=== PATIENT | male | born 1980 | race American Indian/Alaskan Native ===

== ENCOUNTER 2017-03-28 10:51 | Emergency (ER) | payer SELFPAY ==
--- NOTE | 2017-03-28 11:07 | Emergency Department Report ---
Stated Complaint: SKIN IRRITATION X 3 DAYS Time Seen by Provider: 03/28/17 11:05 - HPI History of Present Illness: PT states that he has been breaking out x 3 days. PT states he has never had this problem before. PT has not taken anything for this. - ROS Review of Systems: + itching + rash - Exam Physical Exam: PT is alert and appropriate rash noted to forehead MSE screening note: Focused history and physical exam performed. Due to findings the following was ordered: ED Disposition for MSE Condition: Stable
[2017-03-28 12:22] VITALS: BP 117/77
[2017-03-28] MEDS ORDERED: BENADRYL IM ONE (13:28)
[2017-03-28] MEDS ORDERED: DECADRON IM ONE (13:28)
--- NOTE | 2017-03-28 13:34 | Emergency Department Report ---
ED Rash HPI - HPI Chief Complaint: Skin Rash Stated Complaint: SKIN IRRITATION X 3 DAYS Time Seen by Provider: 03/28/17 11:05 Duration: 3 Days Location: Chest, Back, Abdomen Suspected Cause: Unknown Rash Symptoms: Yes Itching Severity: moderate Other History: Patient is a 36 y/o male who presents due to rash x 3 days. Patient denie sany fever, chills, insect bites. ED Review of Systems ROS: Stated complaint: SKIN IRRITATION X 3 DAYS Other details as noted in HPI Comment: All other systems reviewed and negative Constitutional: no symptoms reported. denies: chills, diaphoresis, fever, malaise, weakness ENT: denies: throat pain Respiratory: no symptoms reported. denies: cough, orthopnea, shortness of breath, SOB with exertion, SOB at rest, stridor, wheezing Cardiovascular: denies: chest pain Gastrointestinal: denies: abdominal pain, nausea, vomiting Skin: rash ED Past Medical Hx - Past Medical History Previous Medical History?: No - Surgical History Past Surgical History?: No - Social History Smoking Status: Current Every Day Smoker Substance Use Type: Alcohol, Marijuana - Medications Home Medications: Home Medications Medication Instructions Recorded Confirmed Last Taken Type Clotrimazole 1% [Lotrimin] 1 applic TP BID #1 tube 03/28/17 Unknown Rx Permethrin 5% [Acticin 5% CREAM] 1 applicatio TP ONCE #1 tube 03/28/17 Unknown Rx diphenhydrAMINE [Benadryl CAP] 25 mg PO Q6HR PRN #20 capsule 03/28/17 Unknown Rx Rash Exam - Exam General: Vital signs noted. No distress. Alert and acting appropriately. HEENT: No Periorbital Edema, No Conjuctival Injection, No Chemosis, No Perioral Edema, No Tongue Edema, No Uvular Edema, No Compromised Airway, No Drooling Skin: Yes Other (patient has papular rash on torso, neck and face. Patient had a 3 x 3 cm dry scaly rash with raised borders on th eleft upper posterior leg. ) ED Course Vital Signs 03/28/17 11:06 Temperature 98.2 F Pulse Rate 72 Respiratory 16 Rate Blood Pressure 117/77 O2 Sat by Pulse 97 Oximetry ED Medical Decision Making - Medical Decision Making patient was in NAD, patient was giveb decadron and benadril IM in the ER. PATIENT WAS DISCHARGED WITH A PRESCRIPTION FOR LOTRIMIN, BENADRYL AND PERMETRHIN. Patient was given information to follow up with a esthetician spa. patient was given lotrimin for the dry scaly rash on the posterior left upper leg. - Differential Diagnosis scabies, contact dermatitis, insect bite, tinea corporis Critical care attestation.: If time is entered above; I have spent that time in minutes in the direct care of this critically ill patient, excluding procedure time. ED Disposition Clinical Impression: Scabies, Tinea corporis Disposition: DC-01 TO HOME OR SELFCARE Is pt being admited?: No Does the pt Need Aspirin: No Condition: Good Instructions: Tinea Corporis (ED), Scabies (ED) Additional Instructions: apply lotrimin cream as prescribed to the left leg lesion, apply permethrin cream from the neck down prior to bedtime and rinse off in the morning. Kane benadryl 25 mg every 6 hours as needed for itching. Do not rive or use heavy machinery while taking benadryl. Prescriptions: Clotrimazole 1% [Lotrimin] 1 applic TP BID #1 tube diphenhydrAMINE [Benadryl CAP] 25 mg PO Q6HR PRN #20 capsule PRN Reason: Itching Permethrin 5% [Acticin 5% CREAM] 1 applicatio TP ONCE #1 tube Referrals: NATTY JENNINGS MD [Staff Physician] - 3-5 Days Forms: Work/School Release Form(ED) Time of Disposition: 13:34
== END 2017-03-28 13:56 | disposition home or self-care (01) ==
LOC: EDSEX → ED 10:51
DX: B86 Scabies (principal); B35.4 Tinea corporis; F17.210 Nicotine dependence, cigarettes, uncomplicated; F12.10 Cannabis abuse, uncomplicated
CPT/HCPCS: 96372; 99282; J1100; J1200

== ENCOUNTER 2021-02-01 21:35 | Emergency (ER) | payer OTHER ==
[2021-02-02 01:45] VITALS: BP 131/83
--- NOTE | 2021-02-02 02:16 | Emergency Department Report ---
ED Male HPI - General Chief complaint: Pain General Stated complaint: ISSUE WITH PENIS/BACK PAIN Time Seen by Provider: 02/02/21 01:53 Source: patient, family Mode of arrival: Ambulatory Limitations: No Limitations - History of Present Illness Initial comments: 40-year-old F [place] male with asthma department complaining of having pain to the back of his testicle region which occurred after ejaculating while his girlfriend was at the time. States that he was masturbating due to her not being able instances has been having some whitish discharge and pain which is continued to linger since the onset. He has no significant sweats of sexual transmitted disease states he only has sex with her does not feel that she is being unfavorable is unsure whether his cough is coming from. States that he is having a growing discomfort between the back of the testicle and the pain is reason but no known knowledge of any prostate issues, no medication changes, and no history of a spinal cord injury or diabetes. MD Complaint: penile discharge, dysuria, other -: Gradual Location: penis Severity: mild Quality: aching, dull Consistency: constant Improves with: none Worsens with: palpation, sexual intercourse discharge (Whitish color), other (Change in stream character. Currently is has a spraying types during versus a rope type stream) - Related Data Previous Rx's Medication Instructions Recorded Last Taken Type Clotrimazole 1% [Lotrimin] 1 applic TP BID #1 tube 03/28/17 Unknown Rx Permethrin 5% [Acticin 5% CREAM] 1 applicatio TP ONCE #1 tube 03/28/17 Unknown Rx diphenhydrAMINE [Benadryl CAP] 25 mg PO Q6HR PRN #20 capsule 03/28/17 Unknown Rx Azithromycin [Zithromax TAB] 1,000 mg PO ONCE #2 tablet 02/02/21 Unknown Rx DOXYCYCLINE Hyclate [Vibramycin 100 mg PO BID #20 capsule 02/02/21 Unknown Rx CAP] metroNIDAZOLE [Flagyl] 2,000 mg PO ONCE #4 tablet 02/02/21 Unknown Rx Allergies Allergy/AdvReac Type Severity Reaction Status Date / Time No Known Allergies Allergy Unverified 03/28/17 11:05 ED Review of Systems ROS: Stated complaint: ISSUE WITH PENIS/BACK PAIN Other details as noted in HPI Comment: All other systems reviewed and negative ED Past Medical Hx - Past Medical History Previous Medical History?: No - Surgical History Past Surgical History?: Yes Additional Surgical History: Hernia x2 - Social History Smoking Status: Current Every Day Smoker Substance Use Type: Alcohol, Marijuana - Medications Home Medications: Home Medications Medication Instructions Recorded Confirmed Last Taken Type Clotrimazole 1% [Lotrimin] 1 applic TP BID #1 tube 03/28/17 Unknown Rx Permethrin 5% [Acticin 5% CREAM] 1 applicatio TP ONCE #1 tube 03/28/17 Unknown Rx diphenhydrAMINE [Benadryl CAP] 25 mg PO Q6HR PRN #20 capsule 03/28/17 Unknown Rx Azithromycin [Zithromax TAB] 1,000 mg PO ONCE #2 tablet 02/02/21 Unknown Rx DOXYCYCLINE Hyclate [Vibramycin 100 mg PO BID #20 capsule 02/02/21 Unknown Rx CAP] metroNIDAZOLE [Flagyl] 2,000 mg PO ONCE #4 tablet 02/02/21 Unknown Rx ED Physical Exam - General Limitations: No Limitations General appearance: alert, in no apparent distress - Head Head exam: Present: atraumatic, normocephalic - Eye Eye exam: Present: normal appearance, PERRL, EOMI - ENT ENT exam: Present: mucous membranes moist - Neck Neck exam: Present: normal inspection - Respiratory Respiratory exam: Present: normal lung sounds bilaterally. Absent: respiratory distress - Cardiovascular Cardiovascular Exam: Present: regular rate, normal rhythm. Absent: systolic murmur, diastolic murmur, rubs, gallop - GI/Abdominal GI/Abdominal exam: Present: soft, tenderness (Suprapubic tenderness), normal bowel sounds - Rectal Rectal exam: Present: deferred - exam: Present: testicular tenderness (Posterior groin towards the perineal region), urethral discharge - Extremities Exam Extremities exam: Present: normal inspection - Back Exam Back exam: Present: normal inspection. Absent: CVA tenderness (R), CVA tenderness (L) - Neurological Exam Neurological exam: Present: alert, oriented X3, CN II-XII intact, normal gait - Psychiatric Psychiatric exam: Present: normal affect, normal mood - Skin Skin exam: Present: warm, dry, intact, normal color. Absent: rash ED Course Vital Signs 02/02/21 01:42 Temperature 98.5 F Pulse Rate 83 Respiratory 18 Rate Blood Pressure 131/83 [Left] O2 Sat by Pulse 99 Oximetry ED Medical Decision Making - Lab Data Lab Results 02/02/21 Range/Units 02:26 Urine Color Yellow (Yellow) Urine Turbidity Slightly-cloudy (Clear) Urine pH 6.0 (5.0-7.0) Ur Specific [place] 1.030 (1.003-1.030) Urine Protein 30 mg/dl (Negative) mg/dL Urine Glucose (UA) Neg (Negative) mg/dL Urine Ketones Neg (Negative) mg/dL Urine Blood Mod (Negative) Urine Nitrite Neg (Negative) Urine Bilirubin Neg (Negative) Urine Urobilinogen < 2.0 (<2.0) mg/dL Ur Leukocyte Esterase Lg (Negative) Urine WBC (Auto) 162.0 H (0.0-6.0) /HPF Urine RBC (Auto) 46.0 (0.0-6.0) /HPF U Epithel Cells (Auto) 2.0 (0-13.0) /HPF Urine Mucus Few /HPF - Radiology Data [facility] [address] [place] [address] Ultrasound Report Signed Patient: FAUSTO ROSAS JR MR#: [id number] : 1980 Acct:[id number] Age/Sex: 40 / M ADM Date: 02/01/21 Loc: ED Attending Dr: Ordering Physician: CARLOS MALIN Date of Service: 02/02/21 Procedure(s): US testicular doppler comp Accession Number(s): [id number] cc: CARLOS MALIN ULTRASOUND SCROTUM INDICATION: pain to posterior testicular area. COMPARISON None available. FINDINGS -- RIGHT TESTIS: Size: 4.0 x 1.7 x 2.9 cm. Echotexture: Heterogeneous Color Doppler Flow: Normal. Lesions: None. EPIDIDYMIS: Size: Normal. Echotexture: Normal. Color Doppler Flow: Normal. Lesions: None Hydrocele: None. Varicocele: None. Additional Findings: None. FINDINGS -- LEFT TESTIS: Size: 3.1 x 2.0 x 3.9 cm. Echotexture: Normal. Color Doppler Flow: Normal. Lesions: None. EPIDIDYMIS: Size: Normal. Echotexture: Normal. Color Doppler Flow: Normal. Lesions: None Hydrocele: Moderate Varicocele: None. Additional Findings: None. IMPRESSION: 1. Moderate left hydrocele 2. Heterogeneous right testicle without torsion or orchitis Signer Name: Marty Joshi MD Signed: 02/02/2021 4:00 AM Workstation Name: [id number] Transcribed By: TL Dictated By: Marty Joshi MD Electronically Authenticated By: Marty Joshi MD Signed Date/Time: 02/02/21399 DD/ 6 TD/TT: - Medical Decision Making 40-year-old -[place] male presents emergency department complaining of whitish discharge and painful ejaculation posterior testicle perineal pain which appears to be secondary to anti-inflammatory / infectious cause. Differential diagnosis are various including prostatitis, sexual transmitted disease, prostate cancer, BPH, diabetes, UTI, ligamentous/musculoskeletal pain/trauma, seminal vesicle complication, even mercury toxicity. Diagnostics ultrasound was [as stated above] Plan will follow up with primary care provider to obtain a PSA in conjunction with reevaluation of his urinalysis in the meantime start him on antibiotics anti-inflammatories and have follow-up with a urologist for reevaluation. Critical care attestation.: If time is entered above; I have spent that time in minutes in the direct care of this critically ill patient, excluding procedure time. ED Disposition Clinical Impression: UTI (urinary tract infection), Deep groin pain Disposition: 01 HOME / SELF CARE / HOMELESS Is pt being admited?: No Does the pt Need Aspirin: No Condition: Stable Instructions: Urinalysis Test, Urinary Tract Infection, Adult, Chlamydia, Male, Safe Sex, Gonorrhea, Prostatitis Referrals: [facility] [Provider Group] - 3-5 Days
--- NOTE | 2021-02-02 04:04 | Ultrasound Report ---
ULTRASOUND SCROTUM INDICATION: pain to posterior testicular area. COMPARISON None available. FINDINGS -- RIGHT TESTIS: Size: 4.0 x 1.7 x 2.9 cm. Echotexture: Heterogeneous Color Doppler Flow: Normal. Lesions: None. EPIDIDYMIS: Size: Normal. Echotexture: Normal. Color Doppler Flow: Normal. Lesions: None Hydrocele: None. Varicocele: None. Additional Findings: None. FINDINGS -- LEFT TESTIS: Size: 3.1 x 2.0 x 3.9 cm. Echotexture: Normal. Color Doppler Flow: Normal. Lesions: None. EPIDIDYMIS: Size: Normal. Echotexture: Normal. Color Doppler Flow: Normal. Lesions: None Hydrocele: Moderate Varicocele: None. Additional Findings: None. IMPRESSION: 1. Moderate left hydrocele 2. Heterogeneous right testicle without torsion or orchitis Signer Name: Marty Joshi MD Signed: 02/02/2021 4:00 AM Workstation Name: [id number]
[2021-02-02 04:05] LABS: Bilirubin,Urine NEG (Negative); Blood,Urine MOD (Negative); Color,Urine Yellow (Yellow); Mucus,Urine FEW /HPF; Urobilinogen,Urine < 2.0 mg/dL (<2.0)
[2021-02-02] MEDS ORDERED: LIDOCAINE-MPF (1%) 10 MG/1 ML VIAL 5 ML INFILTRATI ONE (05:01)
== END 2021-02-02 06:25 | disposition home or self-care (01) ==
LOC: ED 21:35
DX: N39.0 Urinary tract infection, site not specified (principal); R10.30 Lower abdominal pain, unspecified; F17.200 Nicotine dependence, unspecified, uncomplicated; F12.90 Cannabis use, unspecified, uncomplicated; Z79.899 Other long term (current) drug therapy; Z98.890 Other specified postprocedural states
CPT/HCPCS: 81001; 93975; 96372; 99284; J0696